=== PATIENT | female | born 1965 | race Caucasian/White ===

== ENCOUNTER 2017-07-06 14:58 | Emergency (ER) | END 2017-07-06 21:49 | disposition home or self-care (01) ==

== ENCOUNTER 2017-07-18 15:43 | Emergency (ER) | END 2017-07-18 23:39 | disposition home or self-care (01) ==

== ENCOUNTER 2017-07-28 14:27 | Emergency (ER) | END 2017-07-28 19:58 | disposition home or self-care (01) ==

== ENCOUNTER 2017-08-09 17:17 | Emergency (ER) | END 2017-08-09 21:55 | disposition left against medical advice (07) ==